=== PATIENT | female | born 1965 | race Two or more races ===

== ENCOUNTER 2018-04-12 21:53 | Emergency (ER) | payer MEDICAID, OTHER ==
[~2018-04-12] VITALS: Ht 165.1 cm; Wt 90.7 kg
[~2018-04-12 21:53] MED LIST: CHERATUSSIN AC118 ML PO; PREDNISONE20 MG ORAL
[2018-04-12 22:14] VITALS: BP 135/85
--- NOTE | 2018-04-12 22:21 | Emergency Room Report ---
History of Present Illness General Chief Complaint: Flu Like Symptoms Source: Patient Present Illness HPI Patient is a 53-year-old female who presented after increased headache and nasal congestion. The patient reports having increased gradual onset of headache associated with nasal congestion and nonproductive cough. Patient had been sick for approximate 3 days. She denies any fever. She reports having generalized body aches. She denies any vomiting. She reports having some chest discomfort. Allergies: Coded Allergies: No Known Allergies (Unverified , 12/07/14) Patient History Past Medical History: see triage record Last Menstrual Period: n/a Now: No : 2 Para: 2 Reviewed Nursing Documentation: PMH: Agreed; PSxH: Agreed Nursing Documentation-PMH Past Medical History: No History, Except For Review of Systems All Other Systems: negative except mentioned in HPI Physical Exam Vital Signs Date Time Temp Pulse Resp B/P (MAP) Pulse Ox O2 Delivery O2 Flow Rate FiO2 04/12/18 21:56 98.1 94 16 135/85 94 Room Air General Appearance: well appearing, no apparent distress, alert, GCS 15 Head: normocephalic, atraumatic ENT: hearing grossly normal, normal voice Neck: full range of motion, supple Respiratory: normal breath sounds, no respiratory distress, speaking full sentences Cardiovascular #1: normal inspection, regular rate, rhythm Musculoskeletal: no calf tenderness Neurologic: normal gait Psychiatric: mood/affect normal Skin: no rash Medical Decision Making Diagnostic Impression: Primary Impression: Viral respiratory infection ER Course Patient presented for cough. Differential diagnosis included but was not limited to bronchitis, pneumonia, pulmonary embolism, pericarditis, asthma, foreign body. Patient has a benign exam and does not appear to require any further imaging or laboratory testing at this time. The patient given breathing treatment with improvement in her symptoms. EKG interpreted by me showed normal sinus rhythm with a rate of [address] or T wave changes. The patient given prescription for medications for symptom treatment. Chest x-ray one view interpreted by me indication shortness of breath showed normal cardiac size without evident infiltrate or pneumothorax. She is advised to return if she began having worsening difficulty breathing productive cough or other concerns Last Vital Signs Date Time Temp Pulse Resp B/P (MAP) Pulse Ox O2 Delivery O2 Flow Rate FiO2 04/12/18 22:14 94 16 Room Air 04/12/18 22:14 98.1 135/85 94 Status: improved Disposition: HOME, SELF-CARE Condition: Stable Scripts Albuterol Sulfate* (ALBUTEROL SULFATE MDI*) 8.5 Gm Hfa.aer.ad 2 PUFF INH Q4H PRN for cough/wheezing, #1 EA 0 Refills Prov: Destin Simms MD 04/13/18 Guaifenesin* (ADULT WAL-TUSSIN*) 100 Mg/5 Ml Liquid 10 ML ORAL Q4H, #120 ML Prov: Destin Simms MD 04/13/18 Naproxen* (NAPROXEN*) 375 Mg Tablet. 375 MG ORAL TWICE A DAY, #14 TAB Prov: Destin Simms MD 04/13/18 Destin Simms MD Apr 12, 2018 22:21
[2018-04-12] MEDS ORDERED: Albuterol/Ipratropium 3ml neb HHN ONE (22:30)
[2018-04-13] MEDS ORDERED: ALBUTEROL SULF8.5 GM INH (00:36)
[2018-04-13] MEDS ORDERED: NAPROXEN375 M2 ORAL (00:36)
[2018-04-13] MEDS ORDERED: ADULT WAL-100 MG/5 M ORAL (00:36)
[2018-04-13 00:54] VITALS: BP 121/75
[2018-04-13 00:55] VITALS: BP 121/75
--- NOTE | 2018-04-13 11:03 | Diagnostic Imaging Report ---
Indication: Dyspnea Comparison: None A single view chest radiograph was obtained. Findings: Cardiomediastinal appearance is within normal limits for age. The lungs are clear. Pulmonary vascularity is appropriate. The diaphragmatic contour is smooth and costophrenic angles are sharp. No pleural effusions are identified. The bones are unremarkable. Impression: No acute findings
--- NOTE | 2018-04-13 15:28 | Cardiology Report ---
APPROVED REPORT EKG Measurement Heart [id number] Normal sinus rhythm Normal ECG
== END 2018-04-13 00:55 | disposition home or self-care (01) ==
LOC: EMR 22:16
DX: J06.9 Acute upper respiratory infection, unspecified (principal)
CPT/HCPCS: 71045; 93005; 94640; 94664; 99284; J7620

== ENCOUNTER 2019-08-18 13:37 | Emergency (ER) | payer OTHER ==
[~2019-08-18] VITALS: Ht 167.6 cm; Wt 83.9 kg
[2019-08-18 13:30] VITALS: BP 111/70
[~2019-08-18 13:37] MED LIST changes: +ADULT WAL-100 MG/5 M ORAL; +ALBUTEROL SULF8.5 GM INH; +NAPROXEN375 M2 ORAL
--- NOTE | 2019-08-18 14:09 | Emergency Room Report ---
History of Present Illness General Chief Complaint: Upper Respiratory Illness Source: Patient Present Illness HPI 54-year-old female with history of gastritis here complaining of 3 days of cough and congestion. Denies any shortness of breath, wheezing, chest pain. Reports that she has been staying at home for the past 3 weeks. Has not gone to the grocery store. Reports that started 3 days ago she started feeling more nauseated and more acid reflux. Feels weak. Denies any phlegm production. Denies any fever or chills. Appears to be stable, afebrile, oxygenation within normal limits. Denies diarrhea, vomiting at this time. Reports being slightly nauseated. Denies recent travel. Allergies: Coded Allergies: No Known Allergies (Unverified , 12/07/14) COVID-19 Screening Contact w/high risk pt: No Recent Travel to affected area: No Experienced COVID-19 symptoms?: Yes COVID-19 symptoms experienced: Cough Patient History Past Medical History: see triage record Past Surgical History: none Pertinent Family History: none Last Menstrual Period: menopaused Now: No Immunizations: UTD Reviewed Nursing Documentation: PMH: Agreed; PSxH: Agreed Nursing Documentation-PMH Past Medical History: No History, Except For Review of Systems All Other Systems: negative except mentioned in HPI Physical Exam Vital Signs Date Time Temp Pulse Resp B/P (MAP) Pulse Ox O2 Delivery O2 Flow Rate FiO2 08/18/19 13:30 99.7 99 16 111/70 96 Room Air Sp02 EP Interpretation: reviewed, normal General Appearance: no apparent distress, alert, GCS 15, non-toxic Head: normocephalic, atraumatic Eyes: bilateral eye normal inspection, bilateral eye PERRL ENT: hearing grossly normal, normal pharynx, no angioedema, normal voice Neck: full range of motion, supple/symm/no masses Respiratory: chest non-tender, lungs clear, normal breath sounds, no rhonchi, no respiratory distress, no retraction, no wheezing, speaking full sentences Cardiovascular #1: regular rate, rhythm, no edema, no murmur Gastrointestinal: normal bowel sounds, non tender, soft, non-distended, no guarding, no rebound Rectal: deferred Genitourinary: normal inspection Musculoskeletal: normal inspection Neurologic: alert, motor strength/tone normal, oriented x3, sensory intact, responsive, speech normal Psychiatric: judgement/insight normal, memory normal, mood/affect normal, no suicidal/homicidal ideation Skin: no rash Lymphatic: no adenopathy Medical Decision Making PA Attestation All my diagnosis and treatment plans were reviewed ad discussed with my supervising physician Dr. Gutierrez Diagnostic Impression: Primary Impression: Upper respiratory infection Additional Impression: Gastritis ER Course 54-year-old female with history of gastritis here complaining of 3 days of cough and congestion. Denies any shortness of breath, wheezing, chest pain. Reports that she has been staying at home for the past 3 weeks. Has not gone to the grocery store. Reports that started 3 days ago she started feeling more nauseated and more acid reflux. Feels weak. Denies any phlegm production. Denies any fever or chills. Appears to be stable, afebrile, oxygenation within normal limits. Denies diarrhea, vomiting at this time. Reports being slightly nauseated. Denies recent travel. Ddx considered but are not limited to: Coronavirus, strep pharyngitis, URI, tonsillitis, peritonsillar abscess, influneza Vital signs: are WNL, pt. is afebrile H&PE are most consistent with: Upper respiratory infection, gastritis ORDERS: Due to portable x-ray being nonfunctional at this time, chest x-ray could not be done in the tent. Also due to hospital policy, high risk patients cannot be taken downstairs for x-rays. At this time patient has normal oxygenation, lungs are clear, and afebrile no chest x-ray necessary. Azithromycin, Phenergan DM, albuterol, Zofran, omeprazole ED INTERVENTIONS: None required at this time. Patient was evaluated in the context of the global COVID-19 pandemic, which necessitated consideration that the patient might be at risk for infection with the SARS-COV-2 virus that causes COVID-19. Institutional protocols and algorithms that pertain to the evaluation of patients at risk for COVID-19 are in a state of rapid change based on information relieved by multiple regulatory bodies including the CDC and the federal and state organizations. These policies and algorithms were followed during the patient's care in the ED. DISCHARGE: At this time pt. is stable for d/c to home. Will provide printed patient care instructions, and any necessary prescriptions. Care plan and follow up instructions have been discussed with the patient prior to discharge. Take medication as directed, follow-up with your primary doctor, you need to stay home for self quarantine due to Covid 19 precautions for 14 days Last Vital Signs Date Time Temp Pulse Resp B/P (MAP) Pulse Ox O2 Delivery O2 Flow Rate FiO2 08/18/19 13:34 99 16 Room Air 08/18/19 13:30 99.7 111/70 (84) 96 Disposition: HOME, SELF-CARE Condition: Stable Scripts Omeprazole (OMEPRAZOLE) 20 Mg Tablet.dr 20 MG ORAL DAILY, #30 TAB Prov: Caren Brown 08/18/19 Ondansetron (Zofran) 4 Mg Tablet 4 MG ORAL Q6H PRN for Nausea & Vomiting, #14 TAB Prov: Caren Brown 08/18/19 Albuterol Sulfate (VENTOLIN HFA) 18 Gm Hfa.aer.ad 2 PUFFS INH EVERY 6 HOURS, #18 GM 0 Refills Prov: Caren Brown 08/18/19 D-Methorphan Hb/Prometh Hcl* (PROMETHAZINE-DM SYRUP*) 118 Ml Syrup 5 ML ORAL Q6H PRN for For Cough, #120 ML 0 Refills Prov: Caren Brown 08/18/19 Azithromycin* (ZITHROMAX*) 250 Mg Tablet 250 MG ORAL DAILY, #6 TAB 0 Refills Take two tables once daily for 1 day, then one tablet once daily for 4 days. Prov: Caren Brown 08/18/19 Patient Instructions: Gastritis, Adult, [id number], Upper Respiratory Infection, Adult Additional Instructions: Take medication as directed, follow-up with your primary doctor, you need to stay home for self quarantine due to Covid 19 precautions for 14 days Caren Brown Aug 18, 2019 14:09
[2019-08-18] MEDS ORDERED: PROMETHAZINE-D118 ML ORAL (14:10)
[2019-08-18] MEDS ORDERED: ZITHROMAX250 MG ORAL (14:10)
[2019-08-18] MEDS ORDERED: OMEPRAZOLE20 M3 ORAL (14:14)
[2019-08-18] MEDS ORDERED: ZOFRAN4 M1 ORAL (14:14)
[2019-08-18] MEDS ORDERED: VENTOLIN HFA18 GM INH (14:14)
[2019-08-18 14:21] VITALS: BP 123/75
== END 2019-08-18 14:21 | disposition home or self-care (01) ==
LOC: EDBD 13:37 → EMR 14:20
DX: J06.9 Acute upper respiratory infection, unspecified (principal); K29.70 Gastritis, unspecified, without bleeding; K21.9 Gastro-esophageal reflux disease without esophagitis
CPT/HCPCS: 99282

== ENCOUNTER 2019-09-24 10:30 | Inpatient (IN) | payer OTHER ==
[~2019-09-24] VITALS: Ht 167.6 cm; Wt 86.2 kg
[~2019-09-24 10:30] MED LIST changes: +OMEPRAZOLE20 M3 ORAL; +PROMETHAZINE-D118 ML ORAL; +VENTOLIN HFA18 GM INH; +ZITHROMAX250 MG ORAL; +ZOFRAN4 M1 ORAL
[2019-09-24] MEDS ORDERED: Omnipaque-300 100ml vial INJ PRN (11:15)
[2019-09-24] MEDS ORDERED: Morphine Sulfate 4mg/ml Inj (IV USE ONLY) IVP ONE (11:15)
[2019-09-24 11:25] LABS: APPEARANCE,URINE CLEAR; BILIRUBIN, URINE NEGATIVE (NEGATIVE); COLOR,URINE PALE YELLOW; GLUCOSE, URINE (UA) 4+ (NEGATIVE); KETONES,URINE 1+ (NEGATIVE); LEUKOCYTE ESTERASE ,URINE NEGATIVE (NEGATIVE); NITRITE,URINE NEGATIVE (NEGATIVE); PH,URINE 5 (4.5-8.0); PROTEIN,URINE 2+ (NEGATIVE); UROBILINOGEN,URINE NORMAL MG/DL (0.0-1.0)
[2019-09-24 11:27] VITALS: BP 123/75
[2019-09-24 11:28] LABS: ANION GAP 14 mmol/L (5-15); BLOOD UREA NITROGEN 10 mg/dL (7-18); CALCIUM 9.2 MG/DL (8.5-10.1); CARBON DIOXIDE 24 MMOL/L (21-32); CHLORIDE 94 MMOL/L (98-107); CREATININE 1.2 MG/DL (0.55-1.30); POTASSIUM 3.7 MMOL/L (3.5-5.1); SODIUM 132 MMOL/L (136-145)
--- NOTE | 2019-09-24 11:28 | Emergency Room Report ---
History of Present Illness General Chief Complaint: Abdominal Pain Source: Patient Present Illness HPI 54-year-old female presents ED for evaluation. Complaining of abdominal pain x1 day. Localized to right lower abdomen. 10 out of 10, sharp, nonradiating. Notes nausea and vomiting. Denies diarrhea. Denies fevers or chills. States the last few weeks she has been having a "cold" that she is getting over. Denies sick contacts or recent travel. No other aggravating relieving factors. Denies any other associated symptoms Allergies: Coded Allergies: No Known Allergies (Unverified , 12/07/14) COVID-19 Screening Contact w/high risk pt: No Recent Travel to affected area: No Experienced COVID-19 symptoms?: No COVID-19 symptoms experienced: Cough COVID-19 Testing performed [employer] HEAD: No COVID-19 Screening: Negative COVID-19 COVID-19 Testing Source: [facility] Patient History Past Medical History: none Past Surgical History: none Pertinent Family History: none Social History: Denies: smoking, alcohol use, drug use Last Menstrual Period: menopausal Now: No Immunizations: UTD Reviewed Nursing Documentation: PMH: Agreed; PSxH: Agreed Nursing Documentation-PMH Past Medical History: No History, Except For Review of Systems All Other Systems: negative except mentioned in HPI Physical Exam Vital Signs Date Time Temp Pulse Resp B/P (MAP) Pulse Ox O2 Delivery O2 Flow Rate FiO2 09/24/19 10:38 99.9 131 16 123/84 (97) 96 Room Air Sp02 EP Interpretation: reviewed, normal General Appearance: no apparent distress, alert, GCS 15, non-toxic Head: normocephalic, atraumatic Eyes: bilateral eye normal inspection, bilateral eye PERRL ENT: hearing grossly normal, normal pharynx, no angioedema, normal voice Neck: full range of motion, supple/symm/no masses Respiratory: chest non-tender, lungs clear, normal breath sounds, speaking full sentences Cardiovascular #1: no edema, tachycardia Cardiovascular #2: 2+ carotid (R), 2+ carotid (L), 2+ radial (R), 2+ radial (L) , 2+ dorsalis pedis (R), 2+ dorsalis pedis (L) Gastrointestinal: normal bowel sounds, soft, non-distended, no rebound, guarding, tenderness Rectal: deferred Genitourinary: normal inspection, no CVA tenderness Musculoskeletal: back normal, normal range of motion, gait/station normal, non- tender Neurologic: alert, motor strength/tone normal, oriented x3, sensory intact, responsive, speech normal Psychiatric: judgement/insight normal, memory normal, mood/affect normal, no suicidal/homicidal ideation Reflexes: 3+ bicep (R), 3+ bicep (L), 3+ tricep (R), 3+ tricep (L), 3+ knee (R) , 3+ knee (L) Skin: no rash Lymphatic: no adenopathy Medical Decision Making Diagnostic Impression: Primary Impression: COVID-19 Additional Impression: Pneumonia Qualified Codes: J18.9 - Pneumonia, unspecified organism ER Course Hospital Course 54 yo F presents with cough, abd pain. Differential diagnoses include: Pneumonia, CHF exacerbation, pneumothorax, fluid overload Clinical course Patient placed on stretcher. On playground monitor with tachycardia. in isolation. i wore full PPE. After initial history and physical, I ordered labs , IV fluids, EKG, chest x-ray, blood cultures, UA. Labs - marked leukocytosis, hb/hct stable, electrolytes ok CXR -bilateral patchy infiltrates CT abdomen/pelvisgroundglass opacities in bilateral lobes. Appendix unremarkable. Questionable pyelonephritis Given Tylenol. Given IV fluids. COVID swab sent. Antibiotics given. Tachycardia resolving. O2 sats improved with nasal cannula. Case discussed with Dr. Mina and he agreed to the patient to his service for further care and support I feel this is a highly complex case requiring extensive working including EKG/ Rhythm strip, Xray/CT/US, Blood/urine lab work, repeat exams while in ED, and administration of strong opiates/narcotics for pain control, admission to hospital or close patient follow up. Diagnosis - COVID 19, pneuomonia Patient admitted to telemetry in serious condition Labs Test 09/24/19 11:00 09/24/19 13:05 White Blood Count 22.1 K/UL (4.8-10.8) Red Blood Count 5.11 M/UL (4.20-5.40) Hemoglobin 14.8 G/DL (12.0-16.0) Hematocrit 42.2 % (37.0-47.0) Mean Corpuscular Volume 83 FL (80-99) Mean Corpuscular Hemoglobin 29.0 PG (27.0-31.0) Mean Corpuscular Hemoglobin Concent 35.1 G/DL (32.0-36.0) Red Cell Distribution Width 11.8 % (11.6-14.8) Platelet Count 257 K/UL (150-450) Mean Platelet Volume 7.4 FL (6.5-10.1) Neutrophils (%) (Auto) % (45.0-75.0) Lymphocytes (%) (Auto) % (20.0-45.0) Monocytes (%) (Auto) % (1.0-10.0) Eosinophils (%) (Auto) % (0.0-3.0) Basophils (%) (Auto) % (0.0-2.0) Differential Total Cells Counted 100 Neutrophils % (Manual) 82 % (45-75) Lymphocytes % (Manual) 9 % (20-45) Monocytes % (Manual) 2 % (1-10) Eosinophils % (Manual) 1 % (0-3) Basophils % (Manual) 0 % (0-2) Promyelocytes % 6 % (0-0) Band Neutrophils 0 % (0-8) Platelet Estimate Adequate Platelet Morphology Normal Urine Color Pale yellow Urine Appearance Clear Urine pH 5 (4.5-8.0) Urine Specific [place] 1.010 (1.005-1.035) Urine Protein 2+ (NEGATIVE) Urine Glucose (UA) 4+ (NEGATIVE) Urine Ketones 1+ (NEGATIVE) Urine Blood 1+ (NEGATIVE) Urine Nitrite Negative (NEGATIVE) Urine Bilirubin Negative (NEGATIVE) Urine Urobilinogen Normal MG/DL (0.0-1.0) Urine Leukocyte Esterase Negative (NEGATIVE) Urine RBC 0-2 /HPF (0 - 2) Urine WBC 2-4 /HPF (0 - 2) Urine Squamous Epithelial Cells Few /LPF (NONE/OCC) Urine Bacteria Few /HPF (NONE) Urine Yeast Few /HPF (NONE) Sodium Level 132 MMOL/L (136-145) Potassium Level 3.7 MMOL/L (3.5-5.1) Chloride Level 94 MMOL/L (98-107) Carbon Dioxide Level 24 MMOL/L (21-32) Anion Gap 14 mmol/L (5-15) Blood Urea Nitrogen 10 mg/dL (7-18) Creatinine 1.2 MG/DL (0.55-1.30) Estimat Glomerular Filtration Rate 47.2 mL/min (>60) Glucose Level 433 MG/DL (74-106) Calcium Level 9.2 MG/DL (8.5-10.1) Total Bilirubin 1.4 MG/DL (0.2-1.0) Direct Bilirubin 0.2 MG/DL (0.0-0.3) Aspartate Amino Transf (AST/SGOT) 27 U/L (15-37) Alanine Aminotransferase (ALT/SGPT) 40 U/L (12-78) Alkaline Phosphatase 79 U/L (46-116) Total Protein 8.6 G/DL (6.4-8.2) Albumin 3.6 G/DL (3.4-5.0) Globulin 5.0 g/dL Albumin/Globulin Ratio 0.7 (1.0-2.7) Lipase 102 U/L (73-393) Chest X-Ray Diagnostic Results Chest X-Ray Diagnostic Results : Chest X-Ray Ordered: Yes # of Views/Limited/Complete: 1 View Indication: Other - cough EP Interpretation: Yes Interpretation: no pneumothorax, other - patchy infiltrates bilaterally Impression: Other - pneumonia Electronically Signed by: Electronically signed by Telly Crowell MD CT/MRI/US Diagnostic Results CT/MRI/US Diagnostic Results : Imaging Test Ordered: CT A/P Impression COMPARISON: None FINDINGS: Lung bases: Patchy densities and ground-glass opacities in the lower lungs may represent atelectasis and/or infectious/inflammatory process. ABDOMEN: Liver: Hepatic steatosis. Mild hepatomegaly. Gallbladder and bile ducts: Prior cholecystectomy. No ductal dilation. Pancreas: Unremarkable. No mass. No ductal dilation. Spleen: Unremarkable. No splenomegaly. Adrenals: Unremarkable. No mass. Kidneys and ureters: Hypodensity in the right kidney is nonspecific. Associated right perinephric fat stranding. Pyelonephritis with possible developing renal abscess is not excluded. No hydronephrosis or obstructing stone. Stomach and bowel: Evaluation of the stomach is limited by underdistention. Decompressed colon limits evaluation. No bowel obstruction. No mucosal thickening. PELVIS: Appendix: Normal appendix. Bladder: Unremarkable. No mass. Reproductive: Unremarkable as visualized. ABDOMEN and PELVIS: Intraperitoneal space: Unremarkable. No free air. No significant fluid collection. Bones/joints: No acute fracture. No dislocation. Soft tissues: Small fat-containing umbilical hernia. Vasculature: Unremarkable. No abdominal aortic aneurysm. Lymph nodes: Unremarkable. No enlarged lymph nodes. IMPRESSION: 1. Patchy densities and ground-glass opacities in the lower lungs may represent atelectasis and/or infectious/inflammatory process. 2. Hypodensity in the right kidney is nonspecific. Associated right perinephric fat stranding. Pyelonephritis with possible developing renal abscess is not excluded. Last Vital Signs Date Time Temp Pulse Resp B/P (MAP) Pulse Ox O2 Delivery O2 Flow Rate FiO2 09/24/19 10:38 99.9 131 16 123/84 (97) 96 Room Air Status: improved Disposition: ADMITTED INPATIENT Condition: Serious Referrals: NON PHYSICIAN (PCP) Telly Crowell MD September 24, 2019 11:28
[2019-09-24 11:29] LABS: HEMATOCRIT 42.2 % (37.0-47.0); HEMOGLOBIN 14.8 G/DL (12.0-16.0); MEAN CORPUSCULAR VOLUME 83 FL (80-99); PLATELET COUNT 257 K/UL (150-450); RED BLOOD COUNT 5.11 M/UL (4.20-5.40); RED CELL DISTRIBUTION WIDTH 11.8 % (11.6-14.8)
[2019-09-24] MEDS ORDERED: Acetaminophen 500mg (ES) tab ORAL ONE (11:30)
[2019-09-24 11:31] LABS: WHITE BLOOD COUNT 22.1 K/UL (4.8-10.8)
[2019-09-24 11:38] LABS: ALANINE AMINOTRANSFERASE 40 U/L (12-78); ALBUMIN 3.6 G/DL (3.4-5.0); ALBUMIN/GLOBULIN RATIO 0.7 (1.0-2.7); ALKALINE PHOSPHATASE 79 U/L (46-116); ASPARTATE AMINO TRANSFERASE 27 U/L (15-37); BILIRUBIN,TOTAL 1.4 MG/DL (0.2-1.0)
[2019-09-24 11:41] LABS: BILIRUBIN,DIRECT 0.2 MG/DL (0.0-0.3)
--- NOTE | 2019-09-24 12:18 | Diagnostic Imaging Report ---
EXAM: CT Abdomen and Pelvis With Intravenous Contrast CLINICAL HISTORY: ABD PAIN TECHNIQUE: Axial computed tomography images of the abdomen and pelvis with intravenous contrast. CTDI is 8.3 mGy and DLP is 431.8 mGy-cm. One or more of the following dose reduction techniques were used: automated exposure control, adjustment of the mA and/or kV according to patient size, use of iterative reconstruction technique. COMPARISON: None FINDINGS: Lung bases: Patchy densities and ground-glass opacities in the lower lungs may represent atelectasis and/or infectious/inflammatory process. ABDOMEN: Liver: Hepatic steatosis. Mild hepatomegaly. Gallbladder and bile ducts: Prior cholecystectomy. No ductal dilation. Pancreas: Unremarkable. No mass. No ductal dilation. Spleen: Unremarkable. No splenomegaly. Adrenals: Unremarkable. No mass. Kidneys and ureters: Hypodensity in the right kidney is nonspecific. Associated right perinephric fat stranding. Pyelonephritis with possible developing renal abscess is not excluded. No hydronephrosis or obstructing stone. Stomach and bowel: Evaluation of the stomach is limited by underdistention. Decompressed colon limits evaluation. No bowel obstruction. No mucosal thickening. PELVIS: Appendix: Normal appendix. Bladder: Unremarkable. No mass. Reproductive: Unremarkable as visualized. ABDOMEN and PELVIS: Intraperitoneal space: Unremarkable. No free air. No significant fluid collection. Bones/joints: No acute fracture. No dislocation. Soft tissues: Small fat-containing umbilical hernia. Vasculature: Unremarkable. No abdominal aortic aneurysm. Lymph nodes: Unremarkable. No enlarged lymph nodes. IMPRESSION: 1. Patchy densities and ground-glass opacities in the lower lungs may represent atelectasis and/or infectious/inflammatory process. 2. Hypodensity in the right kidney is nonspecific. Associated right perinephric fat stranding. Pyelonephritis with possible developing renal abscess is not excluded.
--- NOTE | 2019-09-24 12:21 | Diagnostic Imaging Report ---
EXAM: XR Chest, 1 View CLINICAL HISTORY: COUGH TECHNIQUE: Frontal view of the chest. COMPARISON: Chest radiograph on 04/12/2018 FINDINGS: Hardware: None. Lungs/pleura: Patchy opacities throughout the lungs. No pleural effusion or pneumothorax. Heart/mediastinum: Mild enlargement of the cardiac silhouette. Soft tissues: Unremarkable. Bones: No acute fracture. Upper abdomen: Normal. IMPRESSION: Patchy opacity throughout the lungs may represent an infectious/inflammatory process versus pulmonary edema.
[2019-09-24] MEDS ORDERED: cefTRIAXone 1 GM in NS 55 ML IVPB ONE (12:30)
[2019-09-24] MEDS ORDERED: Azithromycin 500 MG in NS 275 ML IV ONE (12:30)
[2019-09-24] MEDS ORDERED: Albuterol 90mcg Inhaler 8gm INH PRN (13:45)
[2019-09-24 15:17] VITALS: BP 104/69
[2019-09-24 20:00] VITALS: BP 133/89
[2019-09-24] MEDS: Morphine Sulfate 2mg/ml Inj(IV/IM USE ONLY) IVP PRN (21:07)
[2019-09-25] VITALS: BP 107/69
[2019-09-25 04:00] VITALS: BP 121/79
[2019-09-25 08:00] VITALS: BP 112/68
[2019-09-25] MEDS ORDERED: cefTRIAXone 1 GM in D5W 55 ML IVPB SCH (09:00)
[2019-09-25] MEDS: Enoxaparin 40mg Inj SUBQ SCH (09:00)
[2019-09-25] MEDS: Piperacillin/Tazobactam 3.375 GM in NS 110 ML IVPB SCH ×2 (10:42→16:01)
--- NOTE | 2019-09-25 11:45 | History and Physical Report ---
DATE OF ADMISSION: 09/24/2019 CHIEF COMPLAINT: Abdominal pain, cough, and fevers. HISTORY OF PRESENT ILLNESS: The patient is a 54-year-old female. She has a prior history of gallstones and presented with complaints of right-sided abdominal pain. She has had right-sided abdominal and flank pain that started several days prior to admission. The pain has been severe. She has had subjective fevers and chills. For the last two to three weeks, she has had "cold." She apparently was COVID negative, tested in an outside facility. On evaluation in the emergency room, she had a CAT scan that showed possible ground-glass opacities at the bases as well as hypodensity in the right kidney with perinephric fat stranding, possible pyelonephritis with abscess could not be excluded. The patient is now admitted for further evaluation and care. PAST MEDICAL HISTORY: As above. PAST SURGICAL HISTORY: None. CURRENT MEDICATIONS: Reconciled and reviewed. ALLERGIES: None. FAMILY HISTORY: None. SOCIAL HISTORY: Negative for tobacco, ethanol, or drugs. REVIEW OF SYSTEMS: Significant only for right-sided abdominal pain and flank pain, cough, and fever. PHYSICAL EXAMINATION: VITAL SIGNS: Temperature 102, pulse 121, respirations 21, blood pressure 121/79. GENERAL: The patient is a well-developed female. She appears nontoxic, awake, and alert. HEENT: Her pupils are equal, round, and reactive to light. Sclerae anicteric. Oropharynx is clear. NECK: Supple. HEART: Regular rate and rhythm. LUNGS: Clear. ABDOMEN: Soft. EXTREMITIES: Without clubbing, cyanosis, or edema. LABORATORY DATA: Labs showed a white count of 22,000. Sodium 132, potassium 3.7. Lactic acid was 2.8. Total bilirubin of 1.4. UA showed only 2 to 4 wbc's. ASSESSMENT: This is a 54-year-old female, admitted with cough, abdominal pain. Her symptoms may be consistent with a pyelonephritis although her UA is unremarkable, cannot rule out COVID-19 pneumonia especially in light of the ground-glass opacities on her scan. PLAN: Follow up cultures. Empiric antibiotic therapy for sepsis. Repeat COVID-19. Aggressive fluid resuscitation. ID consultation has been obtained. James Mina M.D. DR: NITA JOB#: [id number] CC:
[2019-09-25 12:00] VITALS: BP 110/70
[2019-09-25 16:00] VITALS: BP 115/80
[2019-09-25] MEDS: NovoLOG Insulin Flexpen SUBQ SCH ×2 (16:10→20:44)
[2019-09-25 20:00] VITALS: BP 119/62
[2019-09-25] MEDS: Morphine Sulfate 2mg/ml Inj(IV/IM USE ONLY) IVP PRN (22:25)
--- NOTE | 2019-09-25 22:30 | Consultation ---
DATE OF CONSULTATION: 09/25/2019 INFECTIOUS DISEASE CONSULTATION CONSULTING PHYSICIAN: Johnny Huang MD This consultation is for coverage of Dr. Willett. PRIMARY ATTENDING PHYSICIAN: James Mina MD REASON FOR CONSULTATION: Pyelonephritis, rule out COVID-19. HISTORY OF PRESENT ILLNESS: This is a 54-year-old female admitted yesterday from home complaining of right upper abdominal pain. It was found that the patient had fever, leukocytosis, tachycardia, and elevated blood sugar. Also, the patient has cough for a couple of weeks after having a cold, usually it is dry cough. Denies any other symptoms. She has a history of cholecystectomy. ALLERGIES: No known drug allergy. MEDICATIONS: Getting sliding-scale insulin, Zosyn, Tylenol, Zofran, . SOCIAL HISTORY: . Originally from [facility]. Denies alcohol, drug abuse, or smoking. She has two healthy daughters. FAMILY HISTORY: Denies family history of diabetes mellitus. REVIEW OF SYSTEMS: Fever at the hospital. Abdominal pain and nausea, but no vomiting. PHYSICAL EXAMINATION: VITAL SIGNS: Pulse 94, blood pressure 110/70, temperature is 98.5. Maximum temperature is 102. Pulse at the time of admission was 121. GENERAL APPEARANCE: No acute distress. HEENT: Some whitish tongue. [place] conjunctivae. HEART: Normal rate. LUNGS: Clear. ABDOMEN: Soft, nontender. EXTREMITIES: She has no edema. NEUROLOGIC: She is awake, alert, oriented x3. LABORATORY AND DIAGNOSTIC DATA: WBC 22.1, hemoglobin 14.8, hematocrit 42.2, and platelets 257,000. Sodium 132, potassium 3.7, chloride 94, bicarbonate 24, BUN 10, creatinine 1.2, glucose is 433. Lactic acid was 2.8, coming down to 2.3. Total bilirubin 1.4. CT scan of the abdomen and pelvis showed patchy densities, ground-glass opacity in the lower lung, atelectasis versus infectious, hypodensity in the right kidney, pyelonephritis with possibility of developing renal abscess is not excluded. UA was negative for WBC, but was positive for glucose, ketones is 1+, and blood is 1+. IMPRESSION: Sepsis with fever, leukocytosis, and tachycardia. The patient may have pyelonephritis. She has abnormal chest x-ray. We will try to rule out COVID-19 pneumonia. She seems to have diabetes mellitus and lactic acidosis. RECOMMENDATION: Continue with Zosyn. We will follow up the cultures. We will follow up the COVID-19 test. We will follow up hemoglobin A1c. At the end of my exam, I thank Dr. Mina for involving me in the care of this patient. Johnny Huang M.D. DR: Kevin JOB#: [id number] CC:
[2019-09-26] VITALS: BP 121/80
[2019-09-26] MEDS: Piperacillin/Tazobactam 3.375 GM in NS 110 ML IVPB SCH ×3 (01:27→17:07)
[2019-09-26 04:00] VITALS: BP 125/83
[2019-09-26] MEDS: NovoLOG Insulin Flexpen SUBQ SCH ×4 (06:40→21:00)
[2019-09-26 07:40] LABS: BASOPHILS % (AUTO) 0.7 % (0.0-2.0); EOSINOPHILS % (AUTO) 0.7 % (0.0-3.0); HEMATOCRIT 35.6 % (37.0-47.0); HEMOGLOBIN 12.4 G/DL (12.0-16.0); LYMPHOCYTES % (AUTO) 16.4 % (20.0-45.0); MEAN CORPUSCULAR VOLUME 82 FL (80-99); MONOCYTES % (AUTO) 7.3 % (1.0-10.0); NEUTROPHILS % (AUTO) 74.9 % (45.0-75.0); PLATELET COUNT 188 K/UL (150-450); RED BLOOD COUNT 4.32 M/UL (4.20-5.40); WHITE BLOOD COUNT 10.9 K/UL (4.8-10.8)
[2019-09-26 07:51] LABS: ALANINE AMINOTRANSFERASE 50 U/L (12-78); ALBUMIN 2.5 G/DL (3.4-5.0); ALBUMIN/GLOBULIN RATIO 0.5 (1.0-2.7); ALKALINE PHOSPHATASE 76 U/L (46-116); ANION GAP 10 mmol/L (5-15); ASPARTATE AMINO TRANSFERASE 42 U/L (15-37); BILIRUBIN,TOTAL 0.6 MG/DL (0.2-1.0); BLOOD UREA NITROGEN 4 mg/dL (7-18); CALCIUM 8.4 MG/DL (8.5-10.1); CARBON DIOXIDE 25 MMOL/L (21-32); CHLORIDE 101 MMOL/L (98-107); CREATININE 0.8 MG/DL (0.55-1.30); POTASSIUM 3.4 MMOL/L (3.5-5.1); SODIUM 135 MMOL/L (136-145)
--- NOTE | 2019-09-26 07:59 | General Progress Note ---
Assessment/Plan Problem List: (1) Diabetes ICD Codes: E11.9 - Type 2 diabetes mellitus without complications SNOMED: 49344409 (2) Abdominal pain ICD Codes: R10.9 - Unspecified abdominal pain SNOMED: 22441437 (3) Cough ICD Codes: R05 - Cough SNOMED: 18225924 (4) Pneumonia ICD Codes: J18.9 - Pneumonia, unspecified organism SNOMED: 353734738 Qualifiers: Qualified Codes: J18.9 - Pneumonia, unspecified organism Status: stable Assessment/Plan: await covid iv abx follow up cultures pain rx ivf diabetes rx Subjective ROS Limited/Unobtainable: No Constitutional: Reports: fever, malaise, weakness HEENT: Reports: no symptoms Cardiovascular: Reports: no symptoms Respiratory: Reports: no symptoms Gastrointestinal/Abdominal: Reports: abdominal pain Genitourinary: Reports: no symptoms Neurologic/Psychiatric: Reports: no symptoms Endocrine: Reports: no symptoms Hematologic/Lymphatic: Reports: no symptoms Allergies: Coded Allergies: No Known Allergies (Unverified , 12/07/14) All Systems: reviewed and negative except above Subjective decreased abd pain. wants sleeping pill. required MS x 1 last night for pain. cultures neg. K low Objective Last 24 Hour Vital Signs Date Time Temp Pulse Resp B/P (MAP) Pulse Ox O2 Delivery O2 Flow Rate FiO2 09/26/19 04:00 96.5 100 20 125/83 (97) 92 09/26/19 00:00 98.2 99 20 121/80 (94) 99 09/26/19 00:00 107 09/25/19 21:00 Nasal Cannula 2.0 09/25/19 20:00 81 09/25/19 20:00 98.2 82 18 119/62 (81) 98 09/25/19 16:00 91 09/25/19 16:00 99.7 102 20 115/80 (92) 94 09/25/19 12:00 98.5 94 20 110/70 (83) 96 09/25/19 09:38 110 09/25/19 09:00 Nasal Cannula 2.0 09/25/19 08:00 98.8 108 20 112/68 (83) 92 Intake and Output 09/25/19 09/26/19 19:00 07:00 Intake Total 1337.5 ml 910.0 ml Balance 1337.5 ml 910.0 ml Intake Oral 800 ml 300 ml IV Total 537.5 ml 610.0 ml # Voids 3 2 Laboratory Tests 09/26/19 06:52: White Blood Count 10.9H, Red Blood Count 4.32, Hemoglobin 12.4, Hematocrit 35.6L , Mean Corpuscular Volume 82, Mean Corpuscular Hemoglobin 28.8, Mean Corpuscular Hemoglobin Concent 34.9, Red Cell Distribution Width 12.0, Platelet Count 188, Mean Platelet Volume 8.5, Neutrophils (%) (Auto) 74.9, Lymphocytes (% ) (Auto) 16.4L, Monocytes (%) (Auto) 7.3, Eosinophils (%) (Auto) 0.7, Basophils (%) (Auto) 0.7, Sodium Level 135L, Potassium Level 3.4L, Chloride Level 101, Carbon Dioxide Level 25, Anion Gap 10, Blood Urea Nitrogen 4L, Creatinine 0.8, Estimat Glomerular Filtration Rate > 60, Glucose Level 304H, Hemoglobin A1c 12.5H, Calcium Level 8.4L, Total Bilirubin 0.6, Aspartate Amino Transf (AST/SGOT ) 42H, Alanine Aminotransferase (ALT/SGPT) 50, Alkaline Phosphatase 76, Total Protein 7.2, Albumin 2.5L, Globulin 4.7, Albumin/Globulin Ratio 0.5L Height (Feet): 5 Height (Inches): 6.00 Weight (Pounds): 175 General Appearance: WD/WN, no apparent distress Cardiovascular: normal rate, regular rhythm Respiratory/Chest: chest wall non-tender, lungs clear, normal breath sounds Abdomen: normal bowel sounds, non tender, soft Edema: no edema noted Arm (L), no edema noted Arm (R), no edema noted Leg (L), no edema noted Leg (R), no edema noted Pedal (L), no edema noted Pedal (R), no edema noted Generalized Neurologic: electrophysiology scientist II-XII grossly normal James Mina MD September 26, 2019 07:59
[2019-09-26 08:00] VITALS: BP 128/79
[2019-09-26] MEDS: Enoxaparin 40mg Inj SUBQ SCH (08:46)
--- NOTE | 2019-09-26 09:33 | Infectious Diseases Prog Note ---
Assessment/Plan Assessment/Plan antibiotics : zosyn A 1. pyelonephritis 2. r/o COVID 19 pneumonia 3. leucocytosis resolved 4. diabetes mellitus P 1. continue zosyn 2. will follow up cultures 3. continue isolation Subjective ROS Limited/Unobtainable: Yes Allergies: Coded Allergies: No Known Allergies (Unverified , 12/07/14) Objective Vital Signs Last 24 Hour Vital Signs Date Time Temp Pulse Resp B/P (MAP) Pulse Ox O2 Delivery O2 Flow Rate FiO2 09/26/19 08:00 98.8 85 20 128/79 (95) 96 09/26/19 04:00 96.5 100 20 125/83 (97) 92 09/26/19 00:00 98.2 99 20 121/80 (94) 99 09/26/19 00:00 107 09/25/19 21:00 Nasal Cannula 2.0 09/25/19 20:00 81 09/25/19 20:00 98.2 82 18 119/62 (81) 98 09/25/19 16:00 91 09/25/19 16:00 99.7 102 20 115/80 (92) 94 09/25/19 12:00 98.5 94 20 110/70 (83) 96 09/25/19 09:38 110 Height (Feet): 5 Height (Inches): 6.00 Weight (Pounds): 175 Microbiology Date/Time Source Procedure Growth Status 09/24/19 13:20 Blood Blood Culture - Preliminary NO GROWTH AFTER 24 HOURS Resulted 09/24/19 13:05 Blood Blood Culture - Preliminary NO GROWTH AFTER 24 HOURS Resulted Laboratory Tests Test 09/26/19 06:52 White Blood Count 10.9 K/UL (4.8-10.8) H Red Blood Count 4.32 M/UL (4.20-5.40) Hemoglobin 12.4 G/DL (12.0-16.0) Hematocrit 35.6 % (37.0-47.0) L Mean Corpuscular Volume 82 FL (80-99) Mean Corpuscular Hemoglobin 28.8 PG (27.0-31.0) Mean Corpuscular Hemoglobin Concent 34.9 G/DL (32.0-36.0) Red Cell Distribution Width 12.0 % (11.6-14.8) Platelet Count 188 K/UL (150-450) Mean Platelet Volume 8.5 FL (6.5-10.1) Neutrophils (%) (Auto) 74.9 % (45.0-75.0) Lymphocytes (%) (Auto) 16.4 % (20.0-45.0) L Monocytes (%) (Auto) 7.3 % (1.0-10.0) Eosinophils (%) (Auto) 0.7 % (0.0-3.0) Basophils (%) (Auto) 0.7 % (0.0-2.0) Sodium Level 135 MMOL/L (136-145) L Potassium Level 3.4 MMOL/L (3.5-5.1) L Chloride Level 101 MMOL/L (98-107) Carbon Dioxide Level 25 MMOL/L (21-32) Anion Gap 10 mmol/L (5-15) Blood Urea Nitrogen 4 mg/dL (7-18) L Creatinine 0.8 MG/DL (0.55-1.30) Estimat Glomerular Filtration Rate > 60 mL/min (>60) Glucose Level 304 MG/DL (74-106) H Hemoglobin A1c 12.5 % (4.3-6.0) H Calcium Level 8.4 MG/DL (8.5-10.1) L Total Bilirubin 0.6 MG/DL (0.2-1.0) Aspartate Amino Transf (AST/SGOT) 42 U/L (15-37) H Alanine Aminotransferase (ALT/SGPT) 50 U/L (12-78) Alkaline Phosphatase 76 U/L (46-116) Total Protein 7.2 G/DL (6.4-8.2) Albumin 2.5 G/DL (3.4-5.0) L Globulin 4.7 g/dL Albumin/Globulin Ratio 0.5 (1.0-2.7) L Current Medications Medications (Trade) Dose Ordered Sig/Joleen Route PRN Reason Start Time Stop Time Status Last Admin Dose Admin Acetaminophen (Tylenol) 650 mg Q4H PRN ORAL Mild Pain (Pain Scale 1-3) 09/24/19 21:00 10/24/19 20:59 09/26/19 04:47 Albuterol Sulfate (Proventil MDI) 2 puff Q4H PRN INH cough/wheezing 09/24/19 13:45 12/23/19 13:44 Dextrose (Dextrose 50%) 25 ml Q30M PRN IV Hypoglycemia 09/25/19 14:15 12/24/19 14:14 Dextrose (Dextrose 50%) 50 ml Q30M PRN IV Hypoglycemia 09/25/19 14:15 12/24/19 14:14 Enoxaparin Sodium (Lovenox) 40 mg DAILY SUBQ 09/25/19 09:00 12/24/19 08:59 09/26/19 08:46 Insulin Aspart (NovoLOG) BEFORE MEALS AND HS SUBQ 09/25/19 16:30 12/24/19 16:29 09/26/19 06:40 Metformin HCl (Glucophage) 850 mg TIAC ORAL 09/26/19 08:00 10/26/19 07:59 09/26/19 08:42 Morphine Sulfate (Morphine Sulfate) 1 mg Q4H PRN IVP Severe Pain (Pain Scale 7-10) 09/24/19 21:00 10/01/19 20:59 09/25/19 22:25 Ondansetron HCl (Zofran) 4 mg Q6H PRN ORAL Nausea & Vomiting 09/24/19 17:00 10/24/19 16:59 Piperacillin Sod/ Tazobactam Sod 3.375 gm/Sodium Chloride 110 ml @ 27.5 mls/hr Q8H IVPB 09/25/19 09:00 10/02/19 08:59 09/26/19 08:42 Promethazine HCl/ Dextromethorphan (Phenergan DM) 5 mg Q6H PRN ORAL For Cough 09/24/19 13:45 10/24/19 13:44 Sodium Chloride 1,000 ml @ 75 mls/hr [id number] IV 09/26/19 08:15 10/26/19 08:14 Reshma Willett MD September 26, 2019 09:33
[2019-09-26 12:00] VITALS: BP 121/67
[2019-09-26 16:00] VITALS: BP 126/71
[2019-09-26] MEDS ORDERED: Hydroxychloroquine Fact Sheet MISC ONE (18:00)
[2019-09-26] MEDS: Promethazine/DM 6.25mg/5ml ORAL PRN (18:30)
[2019-09-26 20:00] VITALS: BP 145/85
[2019-09-27] VITALS: BP 131/70
[2019-09-27] MEDS: Piperacillin/Tazobactam 3.375 GM in NS 110 ML IVPB SCH ×3 (00:01→16:30)
[2019-09-27] MEDS: Promethazine/DM 6.25mg/5ml ORAL PRN ×2 (00:01→08:43)
[2019-09-27 04:00] VITALS: BP 135/84
[2019-09-27] MEDS: NovoLOG Insulin Flexpen SUBQ SCH ×4 (06:11→20:58)
--- NOTE | 2019-09-27 07:51 | General Progress Note ---
Assessment/Plan Problem List: (1) Diabetes ICD Codes: E11.9 - Type 2 diabetes mellitus without complications SNOMED: 82256075 (2) Abdominal pain ICD Codes: R10.9 - Unspecified abdominal pain SNOMED: 19612848 (3) Cough ICD Codes: R05 - Cough SNOMED: 31255202 (4) Pneumonia ICD Codes: J18.9 - Pneumonia, unspecified organism SNOMED: 711405202 Qualifiers: Qualified Codes: J18.9 - Pneumonia, unspecified organism Status: stable Assessment/Plan: await covid iv abx follow up cultures pain rx ivf diabetes rx dc planning if covid neg Subjective ROS Limited/Unobtainable: No Constitutional: Reports: malaise, weakness HEENT: Reports: no symptoms Cardiovascular: Reports: no symptoms Respiratory: Reports: no symptoms Gastrointestinal/Abdominal: Reports: no symptoms Genitourinary: Reports: no symptoms Neurologic/Psychiatric: Reports: no symptoms Endocrine: Reports: no symptoms Hematologic/Lymphatic: Reports: no symptoms Allergies: Coded Allergies: No Known Allergies (Unverified , 12/07/14) All Systems: reviewed and negative except above Subjective much better. abd pain resolved. no fevers or chills. no sob. on plaquenil. wants to go home Objective Last 24 Hour Vital Signs Date Time Temp Pulse Resp B/P (MAP) Pulse Ox O2 Delivery O2 Flow Rate FiO2 09/27/19 04:00 98.2 87 15 135/84 (101) 96 09/27/19 04:00 82 09/27/19 00:00 97 09/27/19 00:00 98.7 96 17 131/70 (90) 98 09/26/19 21:00 Room Air 09/26/19 20:00 98.2 86 17 145/85 (105) 98 09/26/19 20:00 86 09/26/19 16:00 98.1 77 20 126/71 (89) 98 09/26/19 16:00 82 09/26/19 12:00 86 09/26/19 12:00 96.4 67 20 121/67 (85) 98 09/26/19 09:00 Nasal Cannula 2.0 09/26/19 08:00 98.8 85 20 128/79 (95) 96 Intake and Output 09/26/19 09/27/19 18:59 06:59 Intake Total 360 ml Output Total 1400 ml Balance -1040 ml Intake Oral 360 ml Output Urine Total 1400 ml # Voids 5 Height (Feet): 5 Height (Inches): 6.00 Weight (Pounds): 175 General Appearance: WD/WN Cardiovascular: normal rate Respiratory/Chest: lungs clear Abdomen: normal bowel sounds Edema: no edema noted Arm (L), no edema noted Arm (R), no edema noted Leg (L), no edema noted Leg (R), no edema noted Pedal (L), no edema noted Pedal (R), no edema noted Generalized James Mina MD September 27, 2019 07:51
[2019-09-27 08:00] VITALS: BP 140/84
[2019-09-27 08:26] LABS: BASOPHILS % (AUTO) 0.6 % (0.0-2.0); EOSINOPHILS % (AUTO) 1.5 % (0.0-3.0); HEMATOCRIT 34.1 % (37.0-47.0); LYMPHOCYTES % (AUTO) 19.1 % (20.0-45.0); MEAN CORPUSCULAR VOLUME 82 FL (80-99); MONOCYTES % (AUTO) 8.5 % (1.0-10.0); NEUTROPHILS % (AUTO) 70.3 % (45.0-75.0); PLATELET COUNT 227 K/UL (150-450); RED BLOOD COUNT 4.14 M/UL (4.20-5.40); RED CELL DISTRIBUTION WIDTH 11.9 % (11.6-14.8); WHITE BLOOD COUNT 9.8 K/UL (4.8-10.8)
[2019-09-27] MEDS: Enoxaparin 40mg Inj SUBQ SCH (08:28)
[2019-09-27 08:46] LABS: ALANINE AMINOTRANSFERASE 46 U/L (12-78); ALBUMIN 2.5 G/DL (3.4-5.0); ALBUMIN/GLOBULIN RATIO 0.5 (1.0-2.7); ALKALINE PHOSPHATASE 78 U/L (46-116); ANION GAP 8 mmol/L (5-15); ASPARTATE AMINO TRANSFERASE 32 U/L (15-37); BILIRUBIN,TOTAL 0.6 MG/DL (0.2-1.0); BLOOD UREA NITROGEN 4 mg/dL (7-18); CALCIUM 8.5 MG/DL (8.5-10.1); CARBON DIOXIDE 25 MMOL/L (21-32); CHLORIDE 102 MMOL/L (98-107); CREATININE 0.8 MG/DL (0.55-1.30); POTASSIUM 3.3 MMOL/L (3.5-5.1); SODIUM 135 MMOL/L (136-145)
--- NOTE | 2019-09-27 10:39 | Infectious Diseases Prog Note ---
Assessment/Plan Assessment/Plan antibiotics : zosyn A 1. pyelonephritis 2. r/o COVID 19 pneumonia on room air, O2 saturation 98 percent 3. leucocytosis resolved 4. diabetes mellitus P 1. continue zosyn 2. hydroxychloroquine started 3. will follow up cultures 4. urine culture 5. continue isolation Subjective Constitutional: Denies: fever, chills Respiratory: Denies: shortness of breath, dry cough Gastrointestinal/Abdominal: Reports: diarrhea; Denies: nausea, vomiting Musculoskeletal: Denies: pain Allergies: Coded Allergies: No Known Allergies (Unverified , 12/07/14) Objective Vital Signs Last 24 Hour Vital Signs Date Time Temp Pulse Resp B/P (MAP) Pulse Ox O2 Delivery O2 Flow Rate FiO2 09/27/19 09:00 Room Air 09/27/19 08:00 98.2 87 18 140/84 (102) 96 09/27/19 07:53 84 09/27/19 04:00 98.2 87 15 135/84 (101) 96 09/27/19 04:00 82 09/27/19 00:00 97 09/27/19 00:00 98.7 96 17 131/70 (90) 98 09/26/19 21:00 Room Air 09/26/19 20:00 98.2 86 17 145/85 (105) 98 09/26/19 20:00 86 09/26/19 16:00 98.1 77 20 126/71 (89) 98 09/26/19 16:00 82 09/26/19 12:00 86 09/26/19 12:00 96.4 67 20 121/67 (85) 98 Height (Feet): 5 Height (Inches): 6.00 Weight (Pounds): 175 Microbiology Date/Time Source Procedure Growth Status 09/24/19 13:20 Blood Blood Culture - Preliminary NO GROWTH AFTER 48 HOURS Resulted 09/24/19 13:05 Blood Blood Culture - Preliminary NO GROWTH AFTER 48 HOURS Resulted Laboratory Tests Test 09/27/19 08:05 White Blood Count 9.8 K/UL (4.8-10.8) Red Blood Count 4.14 M/UL (4.20-5.40) L Hemoglobin 12.0 G/DL (12.0-16.0) Hematocrit 34.1 % (37.0-47.0) L Mean Corpuscular Volume 82 FL (80-99) Mean Corpuscular Hemoglobin 28.9 PG (27.0-31.0) Mean Corpuscular Hemoglobin Concent 35.1 G/DL (32.0-36.0) Red Cell Distribution Width 11.9 % (11.6-14.8) Platelet Count 227 K/UL (150-450) Mean Platelet Volume 7.8 FL (6.5-10.1) Neutrophils (%) (Auto) 70.3 % (45.0-75.0) Lymphocytes (%) (Auto) 19.1 % (20.0-45.0) L Monocytes (%) (Auto) 8.5 % (1.0-10.0) Eosinophils (%) (Auto) 1.5 % (0.0-3.0) Basophils (%) (Auto) 0.6 % (0.0-2.0) Sodium Level 135 MMOL/L (136-145) L Potassium Level 3.3 MMOL/L (3.5-5.1) L Chloride Level 102 MMOL/L (98-107) Carbon Dioxide Level 25 MMOL/L (21-32) Anion Gap 8 mmol/L (5-15) Blood Urea Nitrogen 4 mg/dL (7-18) L Creatinine 0.8 MG/DL (0.55-1.30) Estimat Glomerular Filtration Rate > 60 mL/min (>60) Glucose Level 237 MG/DL (74-106) H Calcium Level 8.5 MG/DL (8.5-10.1) Total Bilirubin 0.6 MG/DL (0.2-1.0) Aspartate Amino Transf (AST/SGOT) 32 U/L (15-37) Alanine Aminotransferase (ALT/SGPT) 46 U/L (12-78) Alkaline Phosphatase 78 U/L (46-116) Total Protein 7.2 G/DL (6.4-8.2) Albumin 2.5 G/DL (3.4-5.0) L Globulin 4.7 g/dL Albumin/Globulin Ratio 0.5 (1.0-2.7) L Current Medications Medications (Trade) Dose Ordered Sig/Joleen Route PRN Reason Start Time Stop Time Status Last Admin Dose Admin Acetaminophen (Tylenol) 650 mg Q4H PRN ORAL Mild Pain (Pain Scale 1-3) 09/24/19 21:00 10/24/19 20:59 09/26/19 04:47 Albuterol Sulfate (Proventil MDI) 2 puff Q4H PRN INH cough/wheezing 09/24/19 13:45 12/23/19 13:44 Dextrose (Dextrose 50%) 25 ml Q30M PRN IV Hypoglycemia 09/25/19 14:15 12/24/19 14:14 Dextrose (Dextrose 50%) 50 ml Q30M PRN IV Hypoglycemia 09/25/19 14:15 12/24/19 14:14 Enoxaparin Sodium (Lovenox) 40 mg DAILY SUBQ 09/25/19 09:00 12/24/19 08:59 09/26/19 08:46 Hydroxychloroquine Sulfate (Plaquenil) 200 mg Q12HR ORAL 09/27/19 21:00 10/01/19 09:01 Insulin Aspart (NovoLOG) BEFORE MEALS AND HS SUBQ 09/25/19 16:30 12/24/19 16:29 09/27/19 06:11 Metformin HCl (Glucophage) 850 mg TIAC ORAL 09/26/19 08:00 10/26/19 07:59 09/27/19 06:10 Morphine Sulfate (Morphine Sulfate) 1 mg Q4H PRN IVP Severe Pain (Pain Scale 7-10) 09/24/19 21:00 10/01/19 20:59 09/25/19 22:25 Ondansetron HCl (Zofran) 4 mg Q6H PRN ORAL Nausea & Vomiting 09/24/19 17:00 10/24/19 16:59 Piperacillin Sod/ Tazobactam Sod 3.375 gm/Sodium Chloride 110 ml @ 27.5 mls/hr Q8H IVPB 09/25/19 09:00 10/02/19 08:59 09/27/19 08:30 Promethazine HCl/ Dextromethorphan (Phenergan DM) 5 mg Q6H PRN ORAL For Cough 09/24/19 13:45 10/24/19 13:44 09/27/19 08:43 Sodium Chloride 1,000 ml @ 75 mls/hr [id number] IV 09/26/19 08:15 10/26/19 08:14 09/26/19 21:05 Reshma Willett MD September 27, 2019 10:39
[2019-09-27 12:00] VITALS: BP 120/70
[2019-09-27 16:00] VITALS: BP 130/70
[2019-09-27 20:00] VITALS: BP 132/91
[2019-09-28] VITALS: BP 124/79
[2019-09-28] MEDS: Piperacillin/Tazobactam 3.375 GM in NS 110 ML IVPB SCH ×2 (01:00→08:10)
[2019-09-28 04:00] VITALS: BP 139/82
[2019-09-28] MEDS: NovoLOG Insulin Flexpen SUBQ SCH ×2 (06:17→11:20)
[2019-09-28 08:00] VITALS: BP 114/96
[2019-09-28] MEDS: Enoxaparin 40mg Inj SUBQ SCH (08:24)
[2019-09-28] MEDS ORDERED: GLUCOPHAGE850 MG ORAL (08:44)
[2019-09-28] MEDS ORDERED: GLIPIZIDE10 MG PO (08:44)
[2019-09-28] MEDS ORDERED: MACROBID100 MG ORAL (08:44)
--- NOTE | 2019-09-28 08:46 | General Progress Note ---
Assessment/Plan Problem List: (1) Diabetes ICD Codes: E11.9 - Type 2 diabetes mellitus without complications SNOMED: 64674975 (2) Abdominal pain ICD Codes: R10.9 - Unspecified abdominal pain SNOMED: 86024710 (3) Cough ICD Codes: R05 - Cough SNOMED: 83262853 (4) Pneumonia ICD Codes: J18.9 - Pneumonia, unspecified organism SNOMED: 050768196 Qualifiers: Qualified Codes: J18.9 - Pneumonia, unspecified organism Status: stable Assessment/Plan: dc home on po abx and diabetes rx Subjective ROS Limited/Unobtainable: No Constitutional: Reports: no symptoms HEENT: Reports: no symptoms Cardiovascular: Reports: no symptoms Respiratory: Reports: no symptoms Gastrointestinal/Abdominal: Reports: no symptoms Genitourinary: Reports: no symptoms Neurologic/Psychiatric: Reports: no symptoms Endocrine: Reports: no symptoms Hematologic/Lymphatic: Reports: no symptoms Allergies: Coded Allergies: No Known Allergies (Unverified , 12/07/14) All Systems: reviewed and negative except above Subjective much better. abd pain resolved. no fevers or chills. no sob. covid neg. wants tog o home Objective Last 24 Hour Vital Signs Date Time Temp Pulse Resp B/P (MAP) Pulse Ox O2 Delivery O2 Flow Rate FiO2 09/28/19 04:00 98.1 76 18 139/82 (101) 97 09/28/19 04:00 66 09/28/19 00:00 98.2 68 18 124/79 (94) 96 09/28/19 00:00 68 09/27/19 21:00 Room Air 09/27/19 20:00 72 09/27/19 20:00 97.7 84 18 132/91 (105) 95 09/27/19 16:00 98.8 87 18 130/70 (90) 96 09/27/19 15:42 79 09/27/19 12:00 98.8 87 18 120/70 (87) 96 09/27/19 11:44 83 09/27/19 09:00 Room Air Intake and Output 09/27/19 09/28/19 19:00 07:00 Intake Total 550 ml Balance 550 ml Intake Oral 400 ml IV Total 150 ml # Voids 2 3 # Bowel Movements 1 Height (Feet): 5 Height (Inches): 6.00 Weight (Pounds): 190 General Appearance: WD/WN, no apparent distress Neck: supple Cardiovascular: normal rate Respiratory/Chest: lungs clear Abdomen: non tender James Mina MD September 28, 2019 08:46
--- NOTE | 2019-09-28 10:21 | Infectious Diseases Prog Note ---
Assessment/Plan Assessment/Plan antibiotics : zosyn A 1. pyelonephritis 2. COVID 19 test negative x 1 3. leucocytosis resolved 4. diabetes mellitus P 1. d/c zosyn 2. d/c hydroxychloroquine 3. po levoquin 6 more days 4. will follow up cultures 5. d/c isolation Subjective Constitutional: Denies: fever, chills Respiratory: Denies: shortness of breath, dry cough Gastrointestinal/Abdominal: Denies: nausea, vomiting, diarrhea Musculoskeletal: Denies: pain Allergies: Coded Allergies: No Known Allergies (Unverified , 12/07/14) Objective Vital Signs Last 24 Hour Vital Signs Date Time Temp Pulse Resp B/P (MAP) Pulse Ox O2 Delivery O2 Flow Rate FiO2 09/28/19 08:00 66 09/28/19 08:00 98.0 70 20 114/96 (102) 99 09/28/19 04:00 98.1 76 18 139/82 (101) 97 09/28/19 04:00 66 09/28/19 00:00 98.2 68 18 124/79 (94) 96 09/28/19 00:00 68 09/27/19 21:00 Room Air 09/27/19 20:00 72 09/27/19 20:00 97.7 84 18 132/91 (105) 95 09/27/19 16:00 98.8 87 18 130/70 (90) 96 09/27/19 15:42 79 09/27/19 12:00 98.8 87 18 120/70 (87) 96 09/27/19 11:44 83 Height (Feet): 5 Height (Inches): 6.00 Weight (Pounds): 190 Respiratory/Chest: lungs clear Cardiovascular: normal rate, regular rhythm, no gallop/murmur Abdomen: soft, non tender Extremities: no edema Current Medications Medications (Trade) Dose Ordered Sig/Joleen Route PRN Reason Start Time Stop Time Status Last Admin Dose Admin Acetaminophen (Tylenol) 650 mg Q4H PRN ORAL Mild Pain (Pain Scale 1-3) 09/24/19 21:00 10/24/19 20:59 09/26/19 04:47 Albuterol Sulfate (Proventil MDI) 2 puff Q4H PRN INH cough/wheezing 09/24/19 13:45 12/23/19 13:44 Dextrose (Dextrose 50%) 25 ml Q30M PRN IV Hypoglycemia 09/25/19 14:15 12/24/19 14:14 Dextrose (Dextrose 50%) 50 ml Q30M PRN IV Hypoglycemia 09/25/19 14:15 12/24/19 14:14 Enoxaparin Sodium (Lovenox) 40 mg DAILY SUBQ 09/25/19 09:00 12/24/19 08:59 09/26/19 08:46 Insulin Aspart (NovoLOG) BEFORE MEALS AND HS SUBQ 09/25/19 16:30 12/24/19 16:29 09/28/19 06:17 Metformin HCl (Glucophage) 850 mg TIAC ORAL 09/26/19 08:00 10/26/19 07:59 09/28/19 06:15 Morphine Sulfate (Morphine Sulfate) 1 mg Q4H PRN IVP Severe Pain (Pain Scale 7-10) 09/24/19 21:00 10/01/19 20:59 09/25/19 22:25 Ondansetron HCl (Zofran) 4 mg Q6H PRN ORAL Nausea & Vomiting 09/24/19 17:00 10/24/19 16:59 Piperacillin Sod/ Tazobactam Sod 3.375 gm/Sodium Chloride 110 ml @ 27.5 mls/hr Q8H IVPB 09/25/19 09:00 10/02/19 08:59 09/28/19 08:10 Promethazine HCl/ Dextromethorphan (Phenergan DM) 5 mg Q6H PRN ORAL For Cough 09/24/19 13:45 10/24/19 13:44 09/27/19 08:43 Sodium Chloride 1,000 ml @ 75 mls/hr [id number] IV 09/26/19 08:15 10/26/19 08:14 09/27/19 23:46 Reshma Willett MD September 28, 2019 10:21
[2019-09-28] MEDS ORDERED: Levofloxacin 500mg tab ORAL SCH (10:30)
[2019-09-28 12:00] VITALS: BP 126/81
--- NOTE | 2019-09-29 08:37 | Discharge Summary ---
Discharge Summary Discharge Summary _ DATE OF ADMISSION: 09/24/2019 DATE OF DISCHARGE: 09/28/2019 DISCHARGED BY: Dr. Mina REASON FOR ADMISSION: 54 years old female with past medical history of gallstones, presented with complaint of right-sided abdominal pain and flank pain. Pain started several days prior to admission and became progressively severe. Patient reported subjective fever and chills. Patient reported for the last 2 to 3 weeks she had cold . She was tested COVID negative at the outside facility. In emergency department patient had fever and was tachycardic . Pulse oximetry was stable on room air.. Chest x-ray revealed patchy opacity throughout the lungs , possibly representing infectious/inflammatory process versus pulmonary edema. CT scan of the abdomen and pelvis revealed - Patchy densities and ground-glass opacities in the lower lungs may represent atelectasis and/or infectious/inflammatory process. -Hypodensity in the right kidney , nonspecific. Associated right perinephric fat stranding. Pyelonephritis with possible developing renal abscess was not excluded. Laboratory work-up demonstrated leukocytosis WBC 22.1, stable hemoglobin , hematocrit and platelet count. Lactic acid 2.8. Sodium 132. Chloride 94. BUN 10, creatinine 1.2. Glucose 433. Total bilirubin 1.4 direct, bilirubin 0.4. Lipase 102. Urinalysis revealed +2 protein, +4 glucose,. In emergency department patient was swabbed for COVID-19 and received antipyretic, IV fluids. Patient pancultured , started on empiric antibiotics and admitted for further management. CONSULTANTS: ID specialist Dr. Willett HOSPITAL COURSE: , as Patient admitted and started on aggressive IV fluids and empiric antibiotic as per ID specialist recommendation.. Patient was kept in isolation. SARS COV2 by PCR was not detected. Isolation was discontinued. Patient was treated for pneumonia and pyelonephritis. Leukocytosis and fevers resolved. Patient will need to continue oral antibiotic upon discharge to complete the course as per ID specialist recommendation. Hemoglobin A1c 12.5, clearly not at goal. Diabetic teaching provided. Diabetic diet provided. Blood sugar was managed with metformin and sliding scale of insulin. Patient was encouraged compliance with medication and diet. Patient clinically stabilized and was ready for discharge home FINAL DIAGNOSES: Pyelonephritis Leukocytosis-resolved Pneumonia Suspected COVID-19 rule out Diabetes mellitus [id number] DISCHARGE MEDICATIONS: See Medication Reconciliation list. DISCHARGE INSTRUCTIONS: Patient was discharged home to follow-up with a primary care provider in 1 week. I have been assigned to dictate discharge summary for this account. I was not involved in the patient's management. Luh Trent NP September 29, 2019 08:36
== END 2019-09-28 13:38 | disposition home or self-care (01) | DRG 463 ==
LOC: EMR 11:04 → EDBEDREQ 12:25 → 2E 14:31 → EDBEDREQ 14:53
DX: N12 Tubulo-interstitial nephritis, not specified as acute or chronic (principal); E87.2 Acidosis; R00.0 Tachycardia, unspecified; J18.9 Pneumonia, unspecified organism; E11.65 Type 2 diabetes mellitus with hyperglycemia
CPT/HCPCS: 36415; 71045; 74177; 80053; 81003; 82248; 82962; 83036; 83605; 83690; 85007; 85025; 87040; 87086; 87635; 96361; 96365; 96367; 96375; 99285; J1815; J2405; J7030; J8499